=== PATIENT | female | born 1960 | race African-American/Black ===

== ENCOUNTER 2024-12-21 08:15 | Outpatient (AMB) | payer OTHER, SELFPAY ==
--- NOTE | 2024-12-21 08:22 | MHC.PC.OV ---
Vital Signs 12/21/24 08:24 Height 5 ft 3.78 in Weight 163 lb BMI 28.2 BP 130/76 Blood Pressure Location Lt brachial Position Sitting Pulse 66 Pulse Source Pulse Oximeter Temp 97.3 F Temp Source Temporal Artery Scan Pulse Oximetry (%) 98 Oxygen Delivery Method Room Air Intake Visit Reasons: establish care Intake Note: Patient is a new patient here to establish care for DM, Thyriod, HTN, Hernied disc in lower back, Neuropathy in both feet and hands, Retina saroj . Transferring care from unknown. Medical records have not been requested and have not received. Requesting for referral to Eye dr for DM Gypsum Calciner Required: Yes Gypsum Calciner Language: [place] Gypsum Calciner Name: Judy (daughter) Information Interpreted: non-clinical & clinical (Pt decline air traffic control specialist center service, prefer daughter to translate) Watch Train Assembler: Present Accompanied by: Daughter Allergies NSAIDS (Non-Steroidal Anti-Inflamma Allergy (Intermediate, Verified 12/21/24 08:45) GI issues Medication List - Last Reconciled 12/21/24 by Davina Pino PA-C levothyroxine (Levoxyl) 50 mcg PO DAILY metformin 500 mg PO BID omega-3 fatty acids 500 mg PO DAILY Tobacco use date assessed: 12/21/24 Dental Screening Dental Screen Date: 12/21/24 Did you have a dental visit in the last 12 months?: No Did you have a dental problem in the last 6 months where you did not have access to dental care?: No Was dental information given to patient?: No HPI establish care HPI Details 64-year-old female coming to the office with the 1st time. Patient has a history of diabetes mellitus, hypothyroid, history of herniated disc, hypertension, neuropathy in bilateral hands and feet. Daughter provides translation for the duration of this visit and declines formal interpretation today. She tells us today she has never had a primary care provider in the past and has just recently moved to this area. She does have several concerns today. She mentions having a room spinning sensation with blurry feeling in her head multiple times a day they last for a few minutes before resolving spontaneously. This started about a month ago is not identify any triggering events. Along with these episodes she does also have vision loss typically resolves movement. Presenting with a comprehensive evaluation of multiple chronic conditions and preventative care. Essential Hypertension Managed with medication, with a history of high blood pressure. Diabetes not well controlled at this time. Does have a history of retinopathy and neuropathy associated with DM. Chronic Low Back Pain Part of chronic condition management, with ongoing pain reported. Concerns about health deterioration and mortality contribute to anxiety. Possible history of asthma and was treated with inhalers previously. There is also possible concern for claudication of bilateral lower extremities that she does have pain with prolonged walking. She has been having ?right kidney pain ?which started about 1 year ago and has been drinking plenty of water to combat this. Lastly she does mentioned chest pain on the left side of the chest which has been ongoing for the last 3 months and does not ever go away but does occasionally intensify. She does also get shortness of breath with the pain as well. She had a previous episode 1 year ago and was diagnosed with asthma at that time. [facility] Surgical History H/O eye surgery History of thyroidectomy Social History Housing: House Alcohol intake: never Patient Tobacco Use Status: Never used Tobacco e-Cigarette/Vaping Use: Never Used Second Hand Smoke Exposure: No service: No Current occupational status: unemployed Cognitive needs: No Hearing needs: No Vision needs: Yes (Reading glasses) Questionnaire PHQ-9 Over the last 2 weeks, how often have you been bothered by any of the following problems? 1. Little interest or pleasure in doing things: more than half the days 2. Feeling down, depressed, or hopeless: several days 3. Trouble falling or staying asleep, or sleeping too much: nearly every day 4. Feeling tired or having little energy: several days 5. Poor appetite or overeating: several days 6. Feeling bad about yourself - or that you are a failure or have let yourself or your family down: not at all 7. Trouble concentrating on things, such as reading the newspaper or watching television: several days 8. Moving or speaking so slowly that other people could have noticed. Or the opposite - being so fidgety or restless that you have been moving around a lot more than usual: not at all 9. Thoughts that you would be better off or of hurting yourself in some way: not at all Total score: 9 Depression Screening Interpretation: Positive Depression Screening Follow-up: Declines treatment Depression Screening Done: Yes 91730 - PHQ-9 Billing: Yes Source: Developed by Drs. Clinton Stevens, Stacey Talbert, Tee Bowling and colleagues, with an educational etelvina from [employer]. Thrive Questionnaire Date Thrive assessed: 12/19/24 I am a: Patient What is your living situation today?: I have a steady place to live Within the past 12 months, did the food you bought not last and you didn't have the money to get more?: Never true Within the past 12 months, did you worry whether your food would run out before you got money to buy more?: Never true Do you have trouble paying for medicines?: No Do you have trouble getting transportation to medical appointments?: Yes Do you have trouble paying your heating and electricity bill?: No Do you have trouble taking care of your child, family member or friend?: No Do you have trouble with day-to-day activities such as bathing, preparing meals, shopping, managing finances, etc.?: No Are you currently unemployed and looking for a job?: No Are you interested in more education?: Yes Please select the resources that you would like help with: Transportation Currently or been in a relationship where the following occur: No concerns reported THRIVE Score: 1 AUDIT C Alcohol Use Questionnaire (AUDIT-C) 1. How often do you have a drink containing alcohol?: Never 3. How often do you have six or more drinks on one occasion?: Never Total Score: 0 ABRAM-7 AMB Questionnaire ABRAM-7 Date ABRAM - 7 assessed: 12/21/24 Feeling nervous, anxious, or on edge: 1 = Several days Not being able to stop or control worryin = Nearly every day Worrying too much about different things: 3 = Nearly every day Trouble relaxin = Nearly every day Being so restless that it is hard to sit still: 1 = Several days Becoming easily annoyed or irritable: 0 = Not at all Feeling afraid as if something awful might happen: 1 = Several days Total ABRAM-7 score (0-4 normal; 5-9 mild; 10-14 moderate; 15-21 severe): 12 Source: Developed by Stacey Burnham Kurt Kroenke and colleagues, with an educational etelvina from [employer]. ABRAM-7 Assessment Billing ABRAM-7 Assessment Tool: ABRAM-7 Assessment 46191 Review of Systems Const Denies body aches, Denies chills, Denies fever(s), Denies headache(s) and Denies poor appetite Eyes Reports as per HPI ENT Denies dysphagia, Denies dizziness, Denies headache(s) and Denies odynophagia Card Reports as per HPI, Reports chest pain, Denies syncope, Denies edema, Denies irregular heart rhythm, Denies lightheadedness, Denies dyspnea and Reports dyspnea on exertion Resp Denies cough, Denies dyspnea and Reports dyspnea on exertion GI Denies abdominal pain, Denies constipation, Denies dysphagia, Denies diarrhea, Denies nausea, Denies odynophagia and Denies vomiting Reports no additional complaints Musc Reports as per HPI and Denies abnormal gait Skin/Breast Reports system reviewed and no additional complaints, except as documented Neuro Denies abnormal gait, Denies dizziness, Denies syncope and Denies headache(s) Psych Reports no additional complaints Physical exam (Primary Care) Vital Signs: Last Vital Signs Temp 97.3 F 12/21/24 08:24 Pulse 66 12/21/24 08:24 BP 130/76 12/21/24 08:24 Pulse Ox 98 12/21/24 08:24 Oxygen Delivery Method Room Air 12/21/24 08:24 BMI result Body Mass Index 28.2 Tobacco/Smoking Status: Tobacco use Status Tobacco use date assessed 12/21/24 12/21/24 08:45 Patient Tobacco Use Status Never used Tobacco 12/21/24 08:45 e-Cigarette/Vaping Use Never Used 12/21/24 08:45 PHQ-9: PHQ-9 Score PHQ-9: Total score 9 12/22/24 07:58 Depression Screening Interpretation: Positive Depression Screening Follow-up: Declines treatment Thrive Assessment: Date of Thrive Assessment Date Thrive assessed 12/19/24 12/21/24 08:45 Currently or been in a relationship where the following occur: No concerns reported Const General: cooperative, healthy appearing, comfortable and no acute distress Orientation/consciousness: patient oriented x3 HENMT Head: Yes normocephalic Ears: hearing grossly normal bilaterally General nose exam: Normal external nose present Eyes General: appearance normal, both eyes and all related structures Conjunctivae: conjunctivae normal EOM: No Nystagmus present Neck Neck: Yes full ROM and Yes no lymphadenopathy Resp Effort & Inspection: normal respiratory effort Auscultation: clear to auscultation bilaterally, no crackles, no rales, no rhonchi and no wheezes Cardio Rate: regular rate Rhythm: regular rhythm Skin General skin exam: no rashes or lesions noted Neuro General: patient oriented x3 Cranial nerves: Yes CN's II-XII intact bilaterally, Yes Bilaterally intact EOM present, Yes Normal facial strength present, Yes Symmetric palate elevation present, Yes Ability to bilaterally rotate head present and No Nystagmus present Cognition (Neuro): normal cognition Gait exam (Neuro): Normal gait present Extrem General: Yes normal to inspection, Yes full ROM and No edema Psych Affect: normal affect Attitude: cooperative Insight: Good insight present (Psych) Judgement: Good judgement present (Psych) Results AMB Hemoglobin A1c AMB Hemoglobin A1c 7.2 % Last Edit by NIKOLAY Rice on 12/21/24 09:01 Results Reviewed Results Reviewed: Laboratory Last Values Hgb A1c (Clinic) 7.2 % (4.0-6.0) H 12/21/24 08:51 Coding Level of Care Code New Pt Level 4 (42940) Diagnoses Neuropathy G62.9 Retinopathy H35.00 Diabetes mellitus E11.9 Diabetes mellitus complication detail: with diabetic retinopathy Diabetes mellitus complication status: with ophthalmic complications Diabetes mellitus senior clinical data manager insulin use: without group home use Diabetes mellitus macular edema: macular edema presence unspecified Diabetes mellitus type: type 2 Laterality: unspecified laterality Proliferative retinopathy type: unspecified Hypothyroidism, unspecified type E03.9 Hypothyroidism type: unspecified Primary hypertension I10 Hypertension type: primary hypertension Chronic midline low back pain without sciatica M54.50; G89.29 Back pain laterality: midline Chronicity: chronic Sciatica presence: without sciatica Depression, unspecified depression type F32.A Depression Type: unspecified Transient vision disturbance of both eyes H53.9 Chest pain R07.9 SOB (shortness of breath) on exertion R06.02 Additional Codes ABRAM-7 Assessment Billing - ABRAM-7 Assessment Tool: ABRAM-7 Assessment 41944 ([id number]) PHQ-9 - 04180 - PHQ-9 Billing: Yes ([id number]) Assessment & Plan Assessment & Plan (1) Neuropathy: Code(s): G62.9 - Polyneuropathy, unspecified Category: Medical Plan: The patient experiences neuropathy symptoms likely related to diabetes. Continued monitoring and management of blood sugar levels are recommended to prevent progression. Ordered for repeat blood work for further evaluation. (2) Retinopathy: Code(s): H35.00 - Unspecified background retinopathy Category: Medical Plan: The patient has a history of diabetic retinopathy. An eye doctor referral is planned to assess current status and manage any progression. (3) Diabetes mellitus: Code(s): E11.9 - Type 2 diabetes mellitus without complications Category: Medical Qualifiers: Diabetes mellitus complication detail: with diabetic retinopathy Diabetes mellitus complication status: with ophthalmic complications Diabetes mellitus senior clinical data manager insulin use: without senior clinical data manager use Diabetes mellitus macular edema: macular edema presence unspecified Diabetes mellitus type: type 2 Laterality: unspecified laterality Proliferative retinopathy type: unspecified Plan: Decrease the amount of carbohydrates such as pasta, bread, rice, and potatoes and limit the amount of sweets. Although fruits are generally healthy they should be eaten in moderation as they are still high in sugar. Hemoglobin A1c goal of less than 7%. A1c in the clinic today 7.2% There was a lot of confusion around blood sugar management and appropriate levels. We discussed the range of normal blood sugars and what is considered low. The patient does not always take her Metformin as she believes it is causing hypoglycemia. I did discuss with the patient Metformin will rarely cause hypoglycemia. She mentions lows in the 100-110 range which I discussed with her is not considered a low blood sugar and she should continue with the Metformin. She would benefit from a simulation educator and referral was placed to nursing navigation today and she was instructed to bring her monitor at that time. In the meantime her A1c is elevated but she is declining changes in the medication as she has not been using the Metformin. Reinforced medication adherence and when to reach out to the office. (4) Hypothyroidism: Code(s): E03.9 - Hypothyroidism, unspecified Category: Medical Qualifiers: Hypothyroidism type: unspecified Qualified Code(s): E03.9 - Hypothyroidism, unspecified Plan: The patient's hypothyroidism is managed with medication. No changes to the current treatment plan were discussed during the visit. Ordered for repeat blood work. (5) Hypertension: Code(s): I10 - Essential (primary) hypertension Category: Medical Qualifiers: Hypertension type: primary hypertension Qualified Code(s): I10 - Essential (primary) hypertension Plan: Continue on current blood pressure medication. Avoid salt intake and encourage healthy diet and regular exercise. (6) Low back pain: Code(s): M54.50 - Low back pain, unspecified Category: Medical Qualifiers: Back pain laterality: midline Chronicity: chronic Sciatica presence: without sciatica Qualified Code(s): M54.50 - Low back pain, unspecified; G89.29 - Other chronic pain Plan: The patient reports ongoing low back pain. No specific interventions were discussed during the visit, but management of chronic pain is part of her overall care plan. Plan to obtain lumbar spine XR and in the meantime may use Ibuprofen, Tylenol and heating pads prn. (7) Depression: Code(s): F32.A - Depression, unspecified Category: Medical Qualifiers: Depression Type: unspecified Qualified Code(s): F32.A - Depression, unspecified Plan: The patient reports anxiety related to health concerns. Counseling or therapy was not deemed necessary at this time, but reassurance and health education were provided to alleviate anxiety. (8) Transient vision disturbance of both eyes: Code(s): H53.9 - Unspecified visual disturbance Category: Medical Plan: Patient has been complaining of episodes of transient blurred vision. She will be seeing the legal support specialist soon to discuss this as well. Plan to obtain US of bilateral carotids for further evaluation and consider imaging of the brain. Neurolgically intact today. (9) Chest pain: Code(s): R07.9 - Chest pain, unspecified Category: Medical Plan: Complaining of constant chest pain on the left side what she describes as mild achy which does occasionally worsened with exertion. Inconsistencies in the history make it difficult to determine if this is cardiac related or musculoskeletal. Plan to obtain stress test for further evaluation. Patient was advised to avoid excessive activity until stress test can be completed. In did also reviewed red flag symptoms went [facility] (10) SOB (shortness of breath) on exertion: Code(s): R06.02 - Shortness of breath Category: Medical Plan: The patient has a question of history of asthma. A pulmonary function test is ordered to assess current respiratory status, and an inhaler is prescribed for use as needed. Plan to also obtain CXR. Plan During the visit, we discussed the management of the patient's chronic conditions, including hypertension, diabetes, and asthma. I explained the importance of medication adherence and lifestyle modifications, such as diet and exercise, to manage these conditions effectively. We also reviewed the need for regular monitoring of blood sugar levels and blood pressure. I ordered several diagnostic tests, including blood work, a chest x-ray, and an EKG, to assess the patient's current health status. Additionally, I recommended a referral to an eye doctor for diabetic retinopathy evaluation and a pulmonary function test for asthma assessment. The patient was advised to follow up in three months or sooner if symptoms worsen. This note was constructed using voice recognition software. While every effort has been made to ensure accuracy and chucking machine operator, still areas may have been included sometimes these areas may affect the content or meeting of the given symptoms. Total time spent caring for the patient today was 45 minutes. This includes time spent before the visit reviewing the chart, time spent during the visit, and time spent after the visit and documentation. Patient was informed and verbally consented to the use of an ambient scribe for clinic note documentation during this visit. Orders: Orders AMB Hemoglobin A1c 12/21/24 E11.9 - Type 2 diabetes mellitus without complications Free T4 (Free Thyroxine) 12/21/24 E03.9 - Hypothyroidism, unspecified, Z00.00 - Encounter for general adult medical examination without abnormal findings Comprehensive Met. Panel 12/21/24 G62.9 - Polyneuropathy, unspecified, Z00.00 - Encounter for general adult medical examination without abnormal findings Microalbumin, Random (w Creat) 12/21/24 E11.9 - Type 2 diabetes mellitus without complications ECG 12 lead EKG 12/21/24 R06.02 - Shortness of breath US carotid duplex BI 12/21/24 H53.9 - Unspecified visual disturbance TSH reflex Free T4 12/21/24 E03.9 - Hypothyroidism, unspecified, Z13.29 - Encounter for screening for other suspected endocrine disorder Vitamin D 25-OH Total 12/21/24 G62.9 - Polyneuropathy, unspecified, Z13.21 - Encounter for screening for nutritional disorder Vitamin B12 and Folate 12/21/24 G62.9 - Polyneuropathy, unspecified, Z13.21 - Encounter for screening for nutritional disorder Complete Blood Count Auto Diff 12/21/24 G62.9 - Polyneuropathy, unspecified, Z00.00 - Encounter for general adult medical examination without abnormal findings Lipid Panel 12/21/24 E11.9 - Type 2 diabetes mellitus without complications, Z13.220 - Encounter for screening for lipoid disorders XR chest 2V 12/21/24 R07.9 - Chest pain, unspecified UA CC w/rflx Micro + Cult 12/21/24 R35.89 - Other polyuria CA stress test 12/21/24 R06.02 - Shortness of breath, R07.9 - Chest pain, unspecified PFT pulmonary function test 12/21/24 R06.02 - Shortness of breath XR lumbar spine 2-3V 12/21/24 M54.50 - Low back pain, unspecified Referrals Nurse Navigator Referral E11.9 - Type 2 diabetes mellitus without complications Ophthalmology Referral E11.9 - Type 2 diabetes mellitus without complications, H53.9 - Unspecified visual disturbance Medications: New albuterol sulfate 90 mcg/actuation (Ventolin HFA) 1 inh inhalation QID 8.5 grams 0RF R06.02 - Shortness of breath metformin 500 mg PO BID 180 tabs 0RF
[2024-12-21 08:24] VITALS: BP 130/76; PULSE 66; TEMP 36.3; O2SAT 98; BMI 28.2
== END 2024-12-21 09:39 | disposition home or self-care (01) ==
DX: E11.9 Type 2 diabetes mellitus without complications (principal)

== ENCOUNTER 2024-12-21 08:15 | Outpatient (REF) | payer OTHER, SELFPAY ==
--- NOTE | ~2024-12-21 | XR_ITS ---
EXAMINATION: XR CHEST CLINICAL INFORMATION: R07.9 - Chest pain, unspecified COMPARISON: None available. TECHNIQUE: 2 views of the chest were obtained. FINDINGS: The cardiac, hilar, and mediastinal contours are normal. The lungs are clear bilaterally. There is no pneumothorax or pleural effusion. There is no focal osseous or soft tissue abnormality. XR/XR chest 2V IMPRESSION: Normal chest. Electronically signed by: Adalberto Lockett MD 12/21/2024 10:58 AM EDT
--- NOTE | ~2024-12-21 | XR_ITS ---
EXAMINATION: XR LUMBOSACRAL SPINE CLINICAL INFORMATION: M54.50 - Low back pain, unspecified COMPARISON: None available. TECHNIQUE: Three views of the lumbosacral spine. FINDINGS: There is no significant scoliosis. There is a normal lordosis. There is no compression deformity, fracture, or suspicious bone lesion. There is normal alignment without subluxation. There is mild multilevel disc degeneration present. The facets are normally aligned. There are mild multilevel degenerative facet changes. The sacrum and SI joints appear normal. No soft tissue abnormalities. XR/XR lumbar spine 2-3V IMPRESSION: No acute findings of the lumbar spine. Mild multilevel spondylosis. Electronically signed by: Adalberto Lockett MD 12/21/2024 10:59 AM EDT
[2024-12-21 10:11] LABS: MANUAL DIFF FLAG NO
[2024-12-21 10:31] LABS: Hematocrit 42.1 % (37.0-47.0); Hemoglobin 14.2 g/dl (12.0-16.0); Imm Gran Abs Auto 0.01 X10*3/uL (0.00-0.03); Imm Gran Pct Auto 0.2 % (0.0-0.4); Lymphocytes Absolute Auto 2.2 X10*3/uL (1.2-4.9); Mean Corpuscular HGB Conc 33.7 g/dl (31.0-35.0); Mean Corpuscular Hemoglobin 29.6 pg (27.0-33.0); Mean Corpuscular Volume 87.7 fL (80.0-98.0); NRBC Abs Auto 0.000 X10*3/uL (0.0-0.012); NRBC Pct Auto 0.0 /100WBC (0.0-0.2); Platelet Count 212 X10*3/uL (160-400); Red Blood Count 4.80 X10*6/uL (4.20-5.50); White Blood Count 4.5 X10*3/uL (4.8-10.8)
[2024-12-21 10:54] LABS: Appearance Urine Clear; Glucose Urine UA Negative (Negative); PH >= 9.0 (5.0-9.0); Specific Gravity - Urine 1.020 (1.005-1.025)
[2024-12-21 11:16] LABS: Alanine Aminotransferase 22 U/L (0-31); Albumin Level 4.4 g/dL (3.5-5.0); Alkaline Phosphatase 45 U/L (39-117); Anion Gap 15 (12-20); Aspartate Amino Transferase 30 U/L (5-31); Blood Urea Nitrogen 15 mg/dL (9-16); Calcium 9.8 mg/dL (8.4-10.2); Carbon Dioxide 26 mmol/L (22-29); Chloride 107 mmol/L (96-108); Cholesterol 216 mg/dL (<200); Estimated Glomerular Filt Rate > 60; HDL Cholesterol 54 mg/dL (>40); Potassium 4.8 mmol/L (3.3-5.1); Sodium 143 mmol/L (135-145); Total Protein 7.1 g/dL (6.5-8.0); Triglycerides 41 mg/dL (<150)
[2024-12-21 11:27] LABS: Free T4 (Free Thyroxine) 1.30 ng/dL (0.71-1.85)
[2024-12-21 11:35] LABS: Folate 17.0 ng/mL (> or = 4.0); Vitamin B12 1574 pg/mL (200-900)
== END 2024-12-21 08:16 | disposition home or self-care (01) ==
LOC: HO.LAB 08:15
DX: Z00.00 Encounter for general adult medical examination without abnormal findings (principal); Z13.29 Encounter for screening for other suspected endocrine disorder; Z13.21 Encounter for screening for nutritional disorder; Z13.220 Encounter for screening for lipoid disorders; G62.9 Polyneuropathy, unspecified; E11.9 Type 2 diabetes mellitus without complications; E03.9 Hypothyroidism, unspecified; R35.89 Other polyuria; R07.9 Chest pain, unspecified; H35.00 Unspecified background retinopathy; I10 Essential (primary) hypertension; F32.A Depression, unspecified; H53.9 Unspecified visual disturbance; R06.02 Shortness of breath; G89.29 Other chronic pain; M54.50 Low back pain, unspecified; Z79.84 Long term (current) use of oral hypoglycemic drugs; Z79.890 Hormone replacement therapy; Z79.899 Other long term (current) drug therapy
CPT/HCPCS: 36415; 71046; 72100; 80053; 80061; 81003; 82043; 82306; 82570; 82607; 82746; 83036; 84439; 84443; 85025; 96127; 99202

== ENCOUNTER → 2024-12-21 10:17 | Outpatient (BNV) | payer OTHER, SELFPAY | PROVIDERS: Visit Provider Radiology Diagnostic Radiology | DX: M47.816 Spondylosis without myelopathy or radiculopathy, lumbar region (principal); R07.9 Chest pain, unspecified | CPT/HCPCS: 71046; 72100 ==